=== PATIENT | female | born 1945 | race Caucasian/White ===

== ENCOUNTER → 2017-08-10 | Day surgery (SDC) | payer OTHER ==
[2017-08-08 10:25] LABS: BASOPHILS % 0.3 % (0.0-1.0); EOSINOPHILS # (AUTO) 0.1 (0.0-0.4); EOSINOPHILS % 0.5 % (0.0-6.0); HEMATOCRIT 38.6 % (34.2-44.1); LYMPHOCYTES # (AUTO) 2.1 (1.0-3.2); LYMPHOCYTES % 22.3 % (18.0-39.1); MEAN CORPUSCULAR HGB CONC 33.7 g/dL (31-35); MEAN CORPUSCULAR VOLUME 95.1 fL (81-99); MONOCYTES # (AUTO) 1.2 (0.2-0.8); MONOCYTES % 12.6 % (4.4-11.3); NEUTROPHILS # (AUTO) 5.8 (2.1-6.9); NEUTROPHILS % 63.4 % (38.7-80.0); PLATELET COUNT 342 x10e3/uL (140-360); RED BLOOD COUNT 4.06 x10e6/uL (3.6-5.1); RED CELL DISTRIBUTION WIDTH 12.9 % (11.7-14.4)
--- NOTE | 2017-08-08 11:44 | Diagnostic Imaging Report ---
PROCEDURE: Frontal and lateral views of the chest. COMPARISON: Patients [facility], , CHEST SINGLE (PORTABLE), 10/23/2011, 12:54. INDICATIONS: PREOP LEFT KNEE SURGERY TUESDAY FINDINGS: Lines/tubes: None. Lungs: The lungs are well inflated and clear. There is no evidence of pneumonia or pulmonary edema. Pleura: There is no pleural effusion or pneumothorax. Heart and mediastinum: The heart and the mediastinum are normal. Bones: No acute bony abnormality. IMPRESSION: 1. No acute cardiopulmonary disease. Sujatha Julien M.D. Dictated by: Sujatha Julien M.D. on 08/08/2017 at 11:46 Electronically approved by: Sujatha Julien M.D. on 08/08/2017 at 11:46
[~2017-08-10] MED LIST: ALENDRONATE SOD70 MG PO; AMLODIPINE BESY10 MG PO; ASA81 MG PO; BUPIVACAINE 0.5%/EPI 30 ML SDV INJ ONE; CEFAZOLIN SOD 2 GM/D5W 50ML 50 ML IV ONE; DESFLURANE 240 ML BTL INH ONE; DEXAMETHASONE SOD PHOS INJ 4 MG/ML VIAL ONE; EPHEDRINE SULFATE INJ 50 MG/10 ML SYR ONE; FENTANYL CITRATE/PF 100MCG/2 ML INJ ONE; LIDOCAINE HCL 2% LOCAL INJ 5 ML SDV VIAL INJ ONE; METOPROLOL SUC100 MG PO; MIDAZOLAM HCL 2 MG/2 ML VIAL ONE; MORPHINE SULFATE 2 MG/ML SYR ONE; ONDANSETRON HCL INJ 2 MG/ML VIAL ONE; PROPOFOL IV EMULSION 10 MG/ML 20 ML VIAL ONE; TRIAMCINOLONE A15 G1 TOP; VITAMIN D5000 UNIT PO; Z.0.ATENOLOL100 MG PO; Z.0.BENAZEPRIL HCL40 PO; Z.0.CYMBALTA30 MG PO; Z.0.EVISTA60 MG PO; Z.0.HYDROXYZINE HCL2 PO; Z.0.MELOXICAM7.5 MG PO; Z.0.PRILOSEC20 MG PO; Z.0.SERTRALINE HCL50 PO; [UNRECOGNIZED DRUG - OTHER] PO
--- OUTSIDE RECORDS SUMMARY | 2017-08-10 09:02 | XMS REPORT ---
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 Allergies, Adverse Reactions, Alerts This patient has no known allergies or adverse reactions. Medications This patient has no known medications. Results Test Description Test Time Test Comments Text Results Atomic Results Result Comments CHEST 2 VIEWS [place] [id number] [place] [id number] Patient Name: SUNDAR GALICIA MR #: [id number] : 1945 Age/Sex: 71/F Req #: [id number] Adm Physician: Ordered by: GWENDOLYN GARCÍA MD Report #: [id number] Location: OR Room/Bed: Procedure: [id number] DX/CHEST 2 VIEWS Exam Date: 08/08/17 Exam Time: 0950 REPORT STATUS: Signed PROCEDURE: Frontal and lateral views of the chest. COMPARISON: Patients [facility], DX, CHEST SINGLE (PORTABLE ), 10/23/2011, 12:54. INDICATIONS: PREOP LEFT KNEE SURGERY TUESDAY FINDINGS: Lines/tubes: None. Lungs: The lungs are well inflated and clear. There is no evidence of pneumonia or pulmonary edema. Pleura: There is no pleural effusion or pneumothorax. Heart and mediastinum: The heart and the mediastinum are normal. Bones: No acute bony abnormality. IMPRESSION: 1. No acute cardiopulmonary disease. Sujatha Julien M.D. Dictated by: Sujatha Julien M.D. on 08/08/2017 at 11:46 Electronically approved by: Sujatha Julien M.D. on 08/08/2017 at 11:46 Dictated By: KARI JULIEN MD, MD [id number] COPY TO: GWENDOLYN GARCÍA MD
--- NOTE | 2017-08-10 22:00 | Operative Report ---
DATE OF PROCEDURE: August 10, 2017 PREOPERATIVE DIAGNOSIS: 1. Left knee medial meniscus tear. 2. Left knee lateral meniscus tear. 3. Left knee degenerative joint disease of the knee. POSTOPERATIVE DIAGNOSES 1. Left knee medial meniscus tear. 2. Left knee lateral meniscus tear. 3. Left knee degenerative joint disease of the knee. OPERATION AND PROCEDURE PERFORMED: 1. Left knee examination under anesthesia. 2. Left knee arthroscopy. 3. Left knee partial medial meniscectomy. 4. Left knee partial lateral meniscectomy 5. Left knee chondroplasty of patella, trochlea, medial femoral condyle medial tibial plateau, lateral femoral condyle and lateral tibial plateau. WORKFORCE PLANNING ANALYST: None. ANESTHESIA: General endotracheal intubation anesthesia. IV FLUIDS: Per the anesthesia record. BRIEF DESCRIPTION OF THE PATIENT'S OPERATIVE PROCEDURE: Ms. Hoskins was taken to the operating room and placed in supine position on the operating table. Following induction of general anesthesia, as well as endotracheal intubation, the patient's left lower extremity was examined under anesthesia. She was found to have a mild effusion within the joint, but an otherwise ligamentously stable knee. The patient's lower extremity was prepped and draped in standard surgical fashion. A 2 portal technique was used to provide this patient arthroscopic evaluation of the knee joint. Examination of the suprapatellar pouch, medial and lateral gutters found no evidence of loose bodies. There was, however, evidence of chondromalacia of the patellar and trochlear surfaces. Scope was advanced into the medial compartment and examination of the medial compartment demonstrated a tear in the posterior horn and root of the medial meniscus. There was chondromalacia of articulating surfaces. A combination of biting forceps and motorized shaver were used to resect the torn portion of the meniscus. Chondroplasties of the medial and femoral condyle and medial tibial plateau performed at this time. Scope was advanced into the intercondylar notch and the anterior cruciate ligament was identified and found to be intact. Scope was advanced into the lateral compartment. There was a torn and macerated lateral meniscus. A combination of biting forceps and motorized shaver were used to resect the torn portion of the meniscus. Chondroplasties of lateral femoral condyle and lateral tibial plateau were performed at this time. Scope was then placed into the suprapatellar pouch and chondroplasty of patella and trochlea were performed. Knee was deflated of its sterile normal saline. Portal sites were closed using 4-0 nylon suture. Portal sites as well as the knee itself were injected with half percent Marcaine with epinephrine. Sterile dressings were applied. The patient was awakened and taken to the postanesthesia care unit in stable condition. Job#: [id number]
== END | disposition home or self-care (01) ==
LOC: OR 09:01
PROVIDERS: ATTEND Specialist
DX: S83.262D Peripheral tear of lateral meniscus, current injury, left knee, subsequent encounter (principal); S83.222D Peripheral tear of medial meniscus, current injury, left knee, subsequent encounter; M17.12 Unilateral primary osteoarthritis, left knee; I10 Essential (primary) hypertension; Z88.8 Allergy status to other drugs, medicaments and biological substances; Z91.048 Other nonmedicinal substance allergy status; K21.9 Gastro-esophageal reflux disease without esophagitis
CPT/HCPCS: 29881; 36415; 71046; 85025; 93005; J1100; J2001; J2250; J2270; J2405

== ENCOUNTER 2022-04-26 19:20 | Emergency (ER) | payer MEDICARE, OTHER ==
[~2022-04-26] VITALS: Ht 167.6 cm; Wt 59.0 kg
[~2022-04-26 19:20] MED LIST changes: -BUPIVACAINE 0.5%/EPI 30 ML SDV INJ ONE; -CEFAZOLIN SOD 2 GM/D5W 50ML 50 ML IV ONE; -DESFLURANE 240 ML BTL INH ONE; -DEXAMETHASONE SOD PHOS INJ 4 MG/ML VIAL ONE; -EPHEDRINE SULFATE INJ 50 MG/10 ML SYR ONE; -FENTANYL CITRATE/PF 100MCG/2 ML INJ ONE; -LIDOCAINE HCL 2% LOCAL INJ 5 ML SDV VIAL INJ ONE; -MIDAZOLAM HCL 2 MG/2 ML VIAL ONE; -MORPHINE SULFATE 2 MG/ML SYR ONE; -ONDANSETRON HCL INJ 2 MG/ML VIAL ONE; -PROPOFOL IV EMULSION 10 MG/ML 20 ML VIAL ONE
[2022-04-26 19:34] LABS: BASOPHILS % 0.3 % (0.0-1.0); EOSINOPHILS # (AUTO) 0.1 (0.0-0.4); HEMATOCRIT 39.3 % (34.2-44.1); LYMPHOCYTES # (AUTO) 1.1 (1.0-3.2); LYMPHOCYTES % 17.4 % (18.0-39.1); MEAN CORPUSCULAR HEMOGLOBIN 32.6 pg (28-32); MEAN CORPUSCULAR HGB CONC 33.1 g/dL (31-35); MEAN CORPUSCULAR VOLUME 98.5 fL (81-99); MONOCYTES # (AUTO) 1.1 (0.2-0.8); MONOCYTES % 17.4 % (4.4-11.3); NEUTROPHILS # (AUTO) 3.8 (2.1-6.9); NEUTROPHILS % 63.6 % (38.7-80.0); PLATELET COUNT 354 x10e3/uL (140-360); RED BLOOD COUNT 3.99 x10e6/uL (3.6-5.1); RED CELL DISTRIBUTION WIDTH 11.3 % (11.7-14.4)
[2022-04-26 19:44] LABS: INR 0.91; PROTHROMBIN TIME 12.5 seconds (11.9-14.5)
[2022-04-26 19:46] LABS: PARTIAL THROMBOPLASTIN TIME 20.9 seconds (23.8-35.5)
[2022-04-26 19:53] LABS: ALBUMIN/GLOBULIN RATIO 1.3 (0.8-2.0); ANION GAP 18.7 mmol/L (8-16); CALCIUM 9.1 mg/dL (8.4-10.2); CREATININE, SERUM 1.82 mg/dL (0.57-1.11); POTASSIUM 4.7 mmol/L (3.5-5.1)
[2022-04-26 19:59] LABS: CREATINE KINASE MB 1.1 ng/mL (0-5.0)
[2022-04-26] MEDS ORDERED: LEVETIRACETAM 500MG/5ML VIAL 1,000 MG in SODIUM CHLORIDE 0.9% 100 ML IV ONE (20:15)
[2022-04-26] MEDS ORDERED: SODIUM CHLORIDE 0.9% 100 ML ONE (20:33)
[2022-04-26] MEDS ORDERED: LEVETIRACETAM 500 MG/5 ML VIAL IV ONE ×2 (20:33→20:35)
== END 2022-04-26 20:30 | disposition other institution (70) ==
LOC: ER 19:24
DX: S06.5X0A Traumatic subdural hemorrhage without loss of consciousness, initial encounter (principal); R47.01 Aphasia; W01.0XXA Fall on same level from slipping, tripping and stumbling without subsequent striking against object, initial encounter; Y93.01 Activity, walking, marching and hiking; Y92.89 Other specified places as the place of occurrence of the external cause; R73.9 Hyperglycemia, unspecified; Z20.822 Contact with and (suspected) exposure to COVID-19
CPT/HCPCS: 36415; 70450; 70486; 72125; 80053; 82550; 82553; 84484; 85025; 85610; 85730; 93005; 99284; J1953; J7050; U0002

== ENCOUNTER 2024-05-30 08:36 | Observation (INO) | payer MEDICARE ==
[~2024-05-30] VITALS: Ht 167.6 cm; Wt 59.0 kg
[2024-05-30] MEDS ORDERED: NEURONTIN300 MG PO (09:09)
[2024-05-30] MEDS ORDERED: ARICEPT5 MG PO (09:10)
[2024-05-30] MEDS ORDERED: ASPIRIN81 MG PO (09:11)
[2024-05-30 09:16] LABS: BASOPHILS % 0.4 % (0.0-1.0); EOSINOPHILS # (AUTO) 0.1 (0.0-0.4); EOSINOPHILS % 0.6 % (0.0-6.0); HEMOGLOBIN 14.7 g/dL (12.0-16.0); LYMPHOCYTES # (AUTO) 2.3 (1.0-3.2); LYMPHOCYTES % 28.2 % (18.0-39.1); MEAN CORPUSCULAR HEMOGLOBIN 32.7 pg (28-32); MEAN CORPUSCULAR HGB CONC 35.9 g/dL (31-35); MEAN CORPUSCULAR VOLUME 91.3 fL (81-99); MONOCYTES # (AUTO) 1.1 (0.2-0.8); MONOCYTES % 13.2 % (4.4-11.3); NEUTROPHILS # (AUTO) 4.8 (2.1-6.9); NEUTROPHILS % 57.4 % (38.7-80.0); PLATELET COUNT 211 x10e3/uL (140-360); RED BLOOD COUNT 4.49 x10e6/uL (3.6-5.1); RED CELL DISTRIBUTION WIDTH 12.9 % (11.7-14.4); WHITE BLOOD COUNT 8.31 x10e3/uL (4.8-10.8)
[2024-05-30] MEDS: Morphine 2mg Syringe 2 MG/ML SYR IV STA (09:22)
[2024-05-30] MEDS: SODIUM CHLORIDE 0.9% 1000ML 1,000 ML IV STA (09:22)
[2024-05-30] MEDS: ONDANSETRON HCL INJ 2MG/ML 2ML 2 MG/ML VIAL IV STA (09:22)
[2024-05-30 09:23] LABS: INR 0.96; PARTIAL THROMBOPLASTIN TIME 21.6 seconds (23.8-35.5); PROTHROMBIN TIME 13.4 seconds (11.9-14.5)
[2024-05-30 09:33] LABS: ALANINE AMINOTRANSFERASE 17 IU/L (0-55); ALBUMIN 4.3 g/dL (3.5-5.0); ALBUMIN/GLOBULIN RATIO 1.3 (0.8-2.0); ALKALINE PHOSPHATASE 106 IU/L (40-150); ANION GAP 23.5 mmol/L (8-16); BILIRUBIN,TOTAL 0.7 mg/dL (0.2-1.2); BLOOD UREA NITROGEN 24 mg/dL (7-26); BUN/CREATININE RATIO 12 (6-25); CALCIUM 9.2 mg/dL (8.4-10.2); CARBON DIOXIDE 17 mmol/L (22-29); CHLORIDE 91 mmol/L (98-107); CREATININE, SERUM 1.95 mg/dL (0.57-1.11); EST GLOMERULAR FILTRATION RATE 26 ML/MIN (>=60); GLUCOSE 120 mg/dL (74-118); LIPASE 48 U/L (8-78); POTASSIUM 3.5 mmol/L (3.5-5.1); SODIUM 128 mmol/L (136-145); TOTAL PROTEIN 7.6 g/dL (6.5-8.1)
[2024-05-30 10:00] LABS: TROPONIN I < 0.05 ng/mL (0.0-0.40)
[2024-05-30 10:46] LABS: CLARITY,URINE CLEAR (CLEAR); COLOR,URINE YELLOW (YELLOW); GLUCOSE, URINE NEGATIVE (NEGATIVE); KETONES,URINE 1+ (NEGATIVE); LEUKOCYTE ESTERASE ,URINE TRACE (NEGATIVE); NITRITE,URINE NEGATIVE (NEGATIVE); PH,URINE 5.5 (5 - 7); PROTEIN,URINE DIPSTICK 2+ (NEGATIVE); URINE UROBILINOGEN 0.2 mg/dL (0.2 - 1)
[2024-05-30 10:47] LABS: BACTERIA,URINE MODERATE /HPF; BILIRUBIN,URINE SMALL (NEGATIVE); EPITHELIAL CELLS,URINE FEW /LPF; RBC,URINE 0-5 /HPF (0-5); WBC,URINE (MAN) 0-5 /HPF (0-5)
[2024-05-30] MEDS: SODIUM CHLORIDE 0.9% 1000ML 1,000 ML IV SCH (12:22)
[2024-05-30 15:52] VITALS: PULSE 66; RESP 16; TEMP 98.2
[2024-05-30 19:27] VITALS: BP 183/83; PULSE 62; RESP 18; TEMP 98.2; O2SAT 95
[2024-05-30 20:00] VITALS: BP 183/83; PULSE 62; RESP 18; TEMP 98.2; O2SAT 95
[2024-05-30] MEDS ORDERED: HYDRALAZINE HCL 20 MG/ML VIAL IV PRN (23:00)
[2024-05-30] MEDS ORDERED: ONDANSETRON HCL INJ 2MG/ML 2ML 2 MG/ML VIAL IV PRN (23:00)
[2024-05-30 23:18] VITALS: BP 179/70; PULSE 60; RESP 18; TEMP 98.2; O2SAT 99
[2024-05-30] MEDS: OXCARBAZEPINE 300 MG TAB PO SCH (23:23)
[2024-05-30] MEDS: METOPROLOL SUCCINATE 50 MG TAB XL PO SCH (23:23)
[2024-05-30] MEDS: AMLODIPINE BESYLATE 5 MG TAB PO SCH (23:24)
[2024-05-30] MEDS: GABAPENTIN 300 MG CAP PO ONE (23:24)
[2024-05-30] MEDS: DONEPEZIL HCL 5 MG TAB PO SCH (23:24)
[2024-05-30] MEDS: MELATONIN 5 MG TABLET PO PRN (23:31)
[2024-05-30] MEDS: ONDANSETRON HCL INJ 2MG/ML 2ML 2 MG/ML VIAL IV PRN (23:31)
[2024-05-31 03:16] VITALS: BP 129/70; PULSE 58; RESP 18; TEMP 98.1; O2SAT 96
[2024-05-31 05:49] LABS: BASOPHILS % 0.6 % (0.0-1.0); EOSINOPHILS # (AUTO) 0.1 (0.0-0.4); EOSINOPHILS % 1.5 % (0.0-6.0); HEMATOCRIT 34.4 % (34.2-44.1); HEMOGLOBIN 11.9 g/dL (12.0-16.0); LYMPHOCYTES # (AUTO) 1.5 (1.0-3.2); LYMPHOCYTES % 27.6 % (18.0-39.1); MEAN CORPUSCULAR HEMOGLOBIN 32.3 pg (28-32); MEAN CORPUSCULAR HGB CONC 34.6 g/dL (31-35); MEAN CORPUSCULAR VOLUME 93.5 fL (81-99); MONOCYTES % 17.9 % (4.4-11.3); NEUTROPHILS # (AUTO) 2.8 (2.1-6.9); NEUTROPHILS % 52.2 % (38.7-80.0); PLATELET COUNT 231 x10e3/uL (140-360); RED BLOOD COUNT 3.68 x10e6/uL (3.6-5.1); RED CELL DISTRIBUTION WIDTH 12.8 % (11.7-14.4); WHITE BLOOD COUNT 5.43 x10e3/uL (4.8-10.8)
[2024-05-31 06:31] LABS: ALBUMIN 3.4 g/dL (3.5-5.0); ALBUMIN/GLOBULIN RATIO 1.4 (0.8-2.0); ANION GAP 13.7 mmol/L (8-16); BILIRUBIN,TOTAL 0.3 mg/dL (0.2-1.2); CALCIUM 8.6 mg/dL (8.4-10.2); CREATININE, SERUM 1.1 mg/dL (0.57-1.11); MAGNESIUM 2.1 MG/DL (1.3-2.1); POTASSIUM 3.7 mmol/L (3.5-5.1); TOTAL PROTEIN 5.9 g/dL (6.5-8.1)
[2024-05-31 08:00] VITALS: BP 180/70; PULSE 58; RESP 20; TEMP 97.9; O2SAT 98
[2024-05-31 09:24] VITALS: BP 180/70; PULSE 58; RESP 20; TEMP 97.9; O2SAT 98
[2024-05-31] MEDS: GABAPENTIN 300 MG CAP PO SCH (09:31)
[2024-05-31] MEDS: DULOXETINE HCL 30 MG DELAYED RELEASE PO SCH (09:31)
[2024-05-31] MEDS: ASPIRIN 81 MG CHEW TAB PO SCH (09:32)
[2024-05-31 12:00] VITALS: BP 162/67; PULSE 57; RESP 18; TEMP 98.6; O2SAT 99
[2024-05-31] MEDS: ACETAMINOPHEN 325 MG TAB PO PRN (12:05)
== END 2024-05-31 13:45 | disposition home or self-care (01) ==
LOC: ER 08:41 → ERHOLD 10:54 → INTOOBSV 10:54 → MED/SURG2 18:14
PROVIDERS: ADMIT Internal Medicine; ATTEND Internal Medicine
DX: K52.9 Noninfective gastroenteritis and colitis, unspecified (principal); E86.0 Dehydration; N39.0 Urinary tract infection, site not specified; R94.4 Abnormal results of kidney function studies; I10 Essential (primary) hypertension; E78.5 Hyperlipidemia, unspecified; G40.909 Epilepsy, unspecified, not intractable, without status epilepticus; F03.90 Unspecified dementia, unspecified severity, without behavioral disturbance, psychotic disturbance, mood disturbance, and anxiety; G89.29 Other chronic pain; M79.2 Neuralgia and neuritis, unspecified
CPT/HCPCS: 36415 ×2; 71045; 74176; 80053 ×2; 81001; 83690; 83735 ×2; 84484; 85025 ×2; 85610; 85730; 93005; 99284; G0378 ×2; J0696 ×2; J2270; J2405; J2470 ×2; J7030 ×2; J0360

== ENCOUNTER 2024-11-07 16:55 | Observation (INO) | payer MEDICARE ==
[~2024-11-07] VITALS: Ht 167.6 cm; Wt 59.9 kg
[~2024-11-07 16:55] MED LIST changes: +ARICEPT5 MG PO; +ASPIRIN81 MG PO; +NEURONTIN300 MG PO
[2024-11-07] MEDS ORDERED: MEMANTINE HCL10 MG PO (17:23)
[2024-11-07 17:40] LABS: BASOPHILS % 0.6 % (0.0-1.0); EOSINOPHILS % 2.3 % (0.0-6.0); LYMPHOCYTES % 25.3 % (18.0-39.1); MONOCYTES % 13.1 % (4.4-11.3); NEUTROPHILS % 58.6 % (38.7-80.0); RED CELL DISTRIBUTION WIDTH 12.5 % (11.7-14.4)
[2024-11-07 17:49] LABS: LEUKOCYTE ESTERASE ,URINE NEGATIVE (NEGATIVE); PROTEIN,URINE DIPSTICK 1+ (NEGATIVE); URINE UROBILINOGEN 0.2 mg/dL (0.2 - 1)
[2024-11-07 18:01] LABS: EST GLOMERULAR FILTRATION RATE 36.0 ML/MIN (>=60)
[2024-11-07 18:07] LABS: WBC,URINE (MAN) 0-5 /HPF (0-5)
[2024-11-07] MEDS: SODIUM CHLORIDE 0.9% 1000ML 1,000 ML IV STA (18:16)
[2024-11-07] MEDS: CALCIUM GLUC 1 G/50 ML NACL 50 ML IV ONE (18:16)
[2024-11-07] MEDS: GLUCAGON FOR INJ 1 MG VIAL IV ONE (18:17)
[2024-11-07 18:32] LABS: AMPHETAMINES SCREEN,URINE NEGATIVE (NEGATIVE); CANNABINOIDS SCREEN,URINE NEGATIVE (NEGATIVE); COCAINE SCREEN,URINE NEGATIVE (NEGATIVE); METHADONE SCREEN, URINE NEGATIVE (NEGATIVE); OPIATES SCREEN,URINE POSITIVE (NEGATIVE)
[2024-11-07 18:51] VITALS: TEMP 97.7
[2024-11-07] MEDS ORDERED: Morphine 4mg INJECTION 4 MG/ML INJ IV PRN (19:45)
[2024-11-07] MEDS ORDERED: ONDANSETRON HCL INJ 2MG/ML 2ML 2 MG/ML VIAL IV PRN (19:45)
[2024-11-07] MEDS: SODIUM CHLORIDE 0.9% 1000ML 1,000 ML IV SCH (19:55)
[2024-11-07 21:04] VITALS: PULSE 51; RESP 15
[2024-11-07 22:23] VITALS: BP 158/51; PULSE 50; RESP 18; TEMP 98.2; O2SAT 100
[2024-11-07 22:33] VITALS: BP 158/51; PULSE 50; RESP 16; TEMP 98.2; O2SAT 97
[2024-11-08 03:07] VITALS: BP 173/76; PULSE 81; RESP 18; TEMP 98.3; O2SAT 98
[2024-11-08 06:52] LABS: BASOPHILS % 0.4 % (0.0-1.0); EOSINOPHILS % 1.8 % (0.0-6.0); LYMPHOCYTES % 34.6 % (18.0-39.1); MONOCYTES % 13.8 % (4.4-11.3); NEUTROPHILS % 49.2 % (38.7-80.0); RED CELL DISTRIBUTION WIDTH 12.5 % (11.7-14.4)
[2024-11-08 07:32] LABS: EST GLOMERULAR FILTRATION RATE 83.0 ML/MIN (>=60)
[2024-11-08 08:00] VITALS: BP 198/66; PULSE 45; RESP 18; TEMP 98.2; O2SAT 100
[2024-11-08] MEDS: OXCARBAZEPINE 300 MG TAB PO SCH (10:24)
[2024-11-08] MEDS: AMLODIPINE BESYLATE 5 MG TAB PO SCH (10:24)
[2024-11-09] MEDS ORDERED: OMEPRAZOLE 20 MG CAP PO SCH (07:30)
[2024-11-09] MEDS ORDERED: MEMANTINE 10 MG TAB PO SCH (09:00)
[2024-11-09] MEDS ORDERED: ASPIRIN 81 MG CHEW TAB PO SCH (09:00)
== END 2024-11-08 11:20 | disposition home or self-care (01) ==
LOC: ER 17:57 → ERHOLD 19:44 → MED/SURG3 22:12
PROVIDERS: ADMIT Internal Medicine; ATTEND Internal Medicine
DX: E86.0 Dehydration (principal); R00.1 Bradycardia, unspecified; T44.7X5A Adverse effect of beta-adrenoreceptor antagonists, initial encounter; Y92.019 Unspecified place in single-family (private) house as the place of occurrence of the external cause; G40.909 Epilepsy, unspecified, not intractable, without status epilepticus; E78.5 Hyperlipidemia, unspecified; I10 Essential (primary) hypertension; M19.90 Unspecified osteoarthritis, unspecified site; F03.90 Unspecified dementia, unspecified severity, without behavioral disturbance, psychotic disturbance, mood disturbance, and anxiety; Z96.659 Presence of unspecified artificial knee joint
CPT/HCPCS: 36415 ×2; 70450; 71045; 80053 ×2; 80307; 80320; 81001; 82550 ×2; 83880; 84484 ×2; 85025 ×2; 93005; 99284; G0378 ×2; J1610; J7030

== ENCOUNTER 2024-11-17 13:25 | Emergency (ER) | payer MEDICARE ==
[~2024-11-17] VITALS: Ht 167.6 cm; Wt 59.9 kg
[~2024-11-17 13:25] MED LIST changes: +MEMANTINE HCL10 MG PO
[2024-11-17 14:26] LABS: BASOPHILS % 0.1 % (0.0-1.0); EOSINOPHILS % 0.2 % (0.0-6.0); LYMPHOCYTES % 12.2 % (18.0-39.1); MONOCYTES % 8.5 % (4.4-11.3); NEUTROPHILS % 78.8 % (38.7-80.0); RED CELL DISTRIBUTION WIDTH 12.4 % (11.7-14.4)
[2024-11-17 14:32] LABS: INR 0.83
[2024-11-17 14:43] LABS: EST GLOMERULAR FILTRATION RATE 42.0 ML/MIN (>=60)
[2024-11-17] MEDS: ONDANSETRON HCL INJ 2MG/ML 2ML 2 MG/ML VIAL IV STA (14:44)
[2024-11-17] MEDS: SODIUM CHLORIDE 0.9% 1000ML 1,000 ML IV STA (14:45)
[2024-11-17] MEDS: DICYCLOMINE HCL 20 MG/2 ML VIAL IM ONE (14:45)
[2024-11-17] MEDS ORDERED: IOPAMIDOL 370 MG/ML 100 ML INFUS..BTL INJ ONE (14:53)
[2024-11-17] MEDS: HEPARIN SOD (PORCINE) 5,000 UNIT/ML VIAL IV ONE (17:56)
[2024-11-17] MEDS: HEPARIN SOD/DEXTROSE 5% 25000 UNIT/250 ML BAG IV SCH (17:57)
[2024-11-17] MEDS: HYDRALAZINE HCL 20 MG/ML VIAL IV STA ×2 (18:41→19:25)
[2024-11-17 19:05] LABS: LEUKOCYTE ESTERASE ,URINE NEGATIVE (NEGATIVE); PROTEIN,URINE DIPSTICK 1+ (NEGATIVE); URINE UROBILINOGEN 0.2 mg/dL (0.2 - 1)
[2024-11-17 19:15] LABS: EPITHELIAL CELLS,URINE MODERATE /LPF; WBC,URINE (MAN) 0-5 /HPF (0-5)
[2024-11-17 19:16] VITALS: PULSE 65; RESP 22; TEMP 98.7
[2024-11-17] MEDS: NITROGLYCERIN 2% OINT 1 GM PKT TOP ONE (19:25)
[2024-11-17 20:30] VITALS: BP 175/66; PULSE 64; RESP 18; TEMP 98.6; O2SAT 97
== END 2024-11-17 20:36 | disposition other institution (70) ==
LOC: ER 13:53
DX: R10.11 Right upper quadrant pain (principal); N28.0 Ischemia and infarction of kidney; N28.9 Disorder of kidney and ureter, unspecified; R11.0 Nausea; R19.7 Diarrhea, unspecified
CPT/HCPCS: 36415; 70450; 71045; 74177; 80053; 81001; 82550; 83690; 83735; 84484; 85025; 85610; 85730; 87086; 87186; 93005; 99284; J0360; J0500; J1644; J2405; J2470; J7030; Q9967